=== PATIENT | male | born 1970 | race Caucasian/White ===

== ENCOUNTER 2024-12-12 13:34 | Inpatient (IN) | payer OTHER ==
[2024-12-12 15:55] VITALS: BMI 23.1
[2024-12-12] MEDS ORDERED: ACETAMINOPHEN 325 MG TABLET (FP) PO PRN (17:19)
[2024-12-12] MEDS ORDERED: hydrOXYzine PAMOATE 25 MG CAPSULE (FP) PO PRN (17:19)
[2024-12-12] MEDS ORDERED: NALOXONE (NARCAN) HCL 4 MG/0.1 ML SPRAY NS PRN (17:19)
[2024-12-12] MEDS ORDERED: IBUPROFEN 400 MG TABLET (FP) PO PRN (17:19)
[2024-12-12] MEDS ORDERED: BENZONATATE 200 MG CAPSULE PO PRN (17:19)
[2024-12-12] MEDS ORDERED: guaiFENesin 600 MG TABLET.ER (FP) PO PRN (17:19)
[2024-12-12] MEDS ORDERED: LOPERAMIDE HCL 2 MG CAPSULE PO PRN (17:19)
[2024-12-12] MEDS ORDERED: BENZOCAINE/MENTHOL (CHLORASEPTIC ) LOZENGE MM PRN (17:19)
[2024-12-12] MEDS: MELATONIN 5 MG TABLETS PO SCH (21:28)
[2024-12-12] MEDS: THIAMINE 100 MG TABLET PO SCH (21:28)
[2024-12-12] MEDS: TUBERCULIN PPD 5 TU/0.1ML SYRINGE (IN PATIENT USE ONLY) ID ONE (21:30)
[2024-12-13 00:23] LABS: PH,URINE 5.5 (5.0-8.0); URINE APPEARANCE CLEAR; URINE BILIRUBIN NEGATIVE (NEGATIVE); URINE COLOR YELLOW; URINE GLUCOSE (UA) NEGATIVE (NEGATIVE); URINE KETONE NEGATIVE (NEGATIVE); URINE LEUK ESTERASE NEGATIVE (NEGATIVE); URINE NITRITE NEGATIVE (NEGATIVE); URINE PROTEIN NEGATIVE (NEGATIVE); URINE UROBILINOGEN 0.2 mg/dL (0.2-1.0)
[2024-12-13] MEDS ORDERED: methaDONE HCL 10 MG TABLET PO SCH (08:45)
[2024-12-13] MEDS: NICOTINE 14 MG/24 HOURS TOPICAL PATCH TD SCH (09:08)
[2024-12-13] MEDS: PRENATAL VITAMINS W/ FOLIC ACID TABLET (FP) PO SCH (09:08)
[2024-12-13] MEDS: MAGNESIUM HYDROX 2400MG/30ML ORAL SUSPENSION 30 ML CUP PO PRN (09:54)
[2024-12-13 12:36] LABS: SYPHILIS W/ RPR CONF NON-REACTIVE (NONREACTIVE)
[2024-12-13 13:19] LABS: POTASSIUM 4.4 mmol/L (3.5-5.1)
[2024-12-13 13:22] LABS: CALCIUM 8.8 mg/dL (8.5-10.1)
[2024-12-13 13:23] LABS: ALBUMIN 3.4 g/dl (3.4-5.0); BLOOD UREA NITROGEN 26.2 mg/dL (7-18)
[2024-12-13 13:26] LABS: CREATININE 1.1 mg/dL (0.55-1.3)
[2024-12-13 13:27] LABS: BILIRUBIN,TOTAL 0.2 mg/dL (0.2-1); TOT PROT 6.4 g/dl (6.4-8.2)
[2024-12-13] MEDS: DOCUSATE SODIUM 100 MG CAPSULE (FP) PO SCH ×2 (13:38→21:05)
[2024-12-13] MEDS ORDERED: hydrOXYzine PAMOATE 25 MG CAPSULE (FP) PO PRN (13:38)
[2024-12-13] MEDS: IBUPROFEN 600 MG TABLET (FP) PO PRN (15:55)
[2024-12-15] MEDS: POLYETHYLENE GLYCOL (HEALTHYLAX) 3350 17 GM PACKET PO PRN (10:33)
[2024-12-15] MEDS: MAG HYDROX/AL HYDROX/SIMETH 30 ML UNIT-DOSE CUP PO PRN (15:53)
[2024-12-16] MEDS: NICOTINE POLACRILEX 2 MG GUM BUC PRN (10:00)
[2024-12-17 07:08] VITALS: RESP 16
[2024-12-18 06:27] VITALS: BP 110/67; PULSE 53; TEMP 97.9
== END 2024-12-18 18:15 | disposition home or self-care (01) | DRG 895 ==
LOC: YASAS 13:34 → Y3NR 19:47 → Y3E 12-13 09:20
PROVIDERS: ADMIT Psychiatry & Neurology Pain Medicine; ATTEND Psychiatry & Neurology Pain Medicine
PROC: HZ42ZZZ Group Counseling for Substance Abuse Treatment, Cognitive-Behavioral (ICD-10-PCS; principal; 2024-12-12)
DX: F14.20 Cocaine dependence, uncomplicated (principal); F11.20 Opioid dependence, uncomplicated; F13.20 Sedative, hypnotic or anxiolytic dependence, uncomplicated; F17.210 Nicotine dependence, cigarettes, uncomplicated; F19.24 Other psychoactive substance dependence with psychoactive substance-induced mood disorder; F41.9 Anxiety disorder, unspecified; F32.A Depression, unspecified
CPT/HCPCS: 36415; 80053; 80305; 80307; 81003; 86780; 86803; 87522; 87811; 93005; 93010

== ENCOUNTER 2025-03-08 12:26 | Inpatient (IN) | payer OTHER ==
[2025-03-08 13:07] VITALS: BMI 25.0
[2025-03-08] MEDS ORDERED: guaiFENesin 600 MG TABLET.ER (FP) PO PRN (13:37)
[2025-03-08] MEDS ORDERED: IBUPROFEN 600 MG TABLET (FP) PO PRN (13:37)
[2025-03-08] MEDS ORDERED: LOPERAMIDE HCL 2 MG CAPSULE PO PRN (13:37)
[2025-03-08] MEDS ORDERED: NALOXONE (NARCAN) HCL 4 MG/0.1 ML SPRAY NS PRN (13:37)
[2025-03-08] MEDS ORDERED: BENZOCAINE/MENTHOL (CHLORASEPTIC ) LOZENGE MM PRN (13:37)
[2025-03-08] MEDS ORDERED: IBUPROFEN 400 MG TABLET (FP) PO PRN (13:37)
[2025-03-08] MEDS ORDERED: hydrOXYzine PAMOATE 25 MG CAPSULE (FP) PO PRN (13:37)
[2025-03-08] MEDS ORDERED: BENZONATATE 200 MG CAPSULE PO PRN (13:37)
[2025-03-08] MEDS: THIAMINE 100 MG TABLET PO SCH (22:09)
[2025-03-08] MEDS: MELATONIN 5 MG TABLETS PO SCH (22:09)
[2025-03-09] MEDS ORDERED: methaDONE HCL 10 MG TABLET PO SCH (07:45)
[2025-03-09] MEDS: PRENATAL VITAMINS W/ FOLIC ACID TABLET (FP) PO SCH (10:47)
[2025-03-09] MEDS: NICOTINE POLACRILEX 2 MG GUM BUC PRN (11:55)
[2025-03-09] MEDS: GABAPENTIN 100 MG CAPSULE PO SCH (14:24)
[2025-03-09] MEDS: MAGNESIUM HYDROX 2400MG/30ML ORAL SUSPENSION 30 ML CUP PO PRN (18:07)
[2025-03-10] MEDS: POLYETHYLENE GLYCOL (HEALTHYLAX) 3350 17 GM PACKET PO PRN (06:38)
[2025-03-12] MEDS: MAG HYDROX/AL HYDROX/SIMETH 30 ML UNIT-DOSE CUP PO PRN (15:41)
[2025-03-12] MEDS: BACLOFEN 10 MG TABLET (FP) PO SCH (21:12)
[2025-03-13 11:23] LABS: ABSOLUTE IMMATURE GRANULOCYTES 0.04 x10^3/uL (0.0-0.031); BASOPHILS # 0.03 x10^3/uL (0.01-0.08); EOSINOPHIL % 1.5 % (0.8-7.0); EOSINOPHILS # 0.09 x10^3/uL (0.04-0.54); HEMATOCRIT 38.4 % (40.1-51.0); MCHC 31.3 g/dl (32.3-36.5); MEAN CELL VOLUME 86.3 fl (79.0-92.2); MEAN PLT VOLUME 12.5 fl (9.4-12.4); MONOCYTE # 0.65 x10^3/uL (0.30-0.82); PLATELET COUNT 142 x10^3/uL (163-337); RDW 14.3 % (12.2-16.1)
[2025-03-13 12:07] LABS: ALBUMIN 3.4 g/dl (3.4-5.0); BLOOD UREA NITROGEN 19.2 mg/dL (7-18); CALCIUM 9.6 mg/dL (8.5-10.1)
[2025-03-13 12:08] LABS: CREATININE 1.1 mg/dL (0.55-1.3)
[2025-03-13 12:09] LABS: BILIRUBIN,TOTAL 0.3 mg/dL (0.2-1)
[2025-03-13 12:10] LABS: TOT PROT 6.5 g/dl (6.4-8.2)
[2025-03-16] MEDS: SIMETHICONE 80 MG TAB.CHEW (FP) PO PRN (17:37)
[2025-03-16] MEDS: BACLOFEN 10 MG TABLET (FP) PO SCH (21:09)
[2025-03-19] MEDS: ACETAMINOPHEN 325 MG TABLET (FP) PO PRN (13:07)
[2025-03-24 05:34] VITALS: RESP 16
[2025-03-27 06:12] VITALS: BP 107/68; PULSE 60; TEMP 97.3
== END 2025-03-27 09:32 | disposition home or self-care (01) | DRG 895 ==
LOC: YASAS 12:26 → Y3NR 15:55 → Y3W 03-09 10:11
PROVIDERS: ADMIT Psychiatry & Neurology Pain Medicine; ATTEND Psychiatry & Neurology Pain Medicine
PROC: HZ42ZZZ Group Counseling for Substance Abuse Treatment, Cognitive-Behavioral (ICD-10-PCS; principal; 2025-03-08)
DX: F11.20 Opioid dependence, uncomplicated (principal); F14.20 Cocaine dependence, uncomplicated; F13.20 Sedative, hypnotic or anxiolytic dependence, uncomplicated; F19.282 Other psychoactive substance dependence with psychoactive substance-induced sleep disorder; F19.280 Other psychoactive substance dependence with psychoactive substance-induced anxiety disorder; F17.210 Nicotine dependence, cigarettes, uncomplicated; F19.24 Other psychoactive substance dependence with psychoactive substance-induced mood disorder; F43.10 Post-traumatic stress disorder, unspecified; F41.9 Anxiety disorder, unspecified; K21.9 Gastro-esophageal reflux disease without esophagitis; Z86.19 Personal history of other infectious and parasitic diseases; Z62.810 Personal history of physical and sexual abuse in childhood
CPT/HCPCS: 36415; 80053; 80305; 80307; 85025; 86780; 87811; J0475